=== PATIENT | female | born 2000 | race Caucasian/White ===

== ENCOUNTER → 2020-01-11 13:45 | Outpatient (BNVA) | payer SELFPAY | PROVIDERS: Family Provider Nurse Practitioner; Visit Provider Nurse Practitioner Family | DX: R05 Cough (principal); R09.81 Nasal congestion; R50.9 Fever, unspecified; Z11.59 Encounter for screening for other viral diseases | CPT/HCPCS: 87635 ==

== ENCOUNTER → 2020-02-28 13:55 | Outpatient (BNVA) | payer OTHER, SELFPAY | PROVIDERS: Family Provider Nurse Practitioner; Visit Provider Psychiatry & Neurology Psychiatry | DX: Z03.89 Encounter for observation for other suspected diseases and conditions ruled out (principal); Z79.899 Other long term (current) drug therapy; F32.9 Major depressive disorder, single episode, unspecified; F33.1 Major depressive disorder, recurrent, moderate; F15.20 Other stimulant dependence, uncomplicated | CPT/HCPCS: 80048; 80061; 83036; 84443; 85025 ==

== ENCOUNTER 2020-07-06 22:14 | Inpatient (IN) | payer SELFPAY ==
[2020-07-06 22:16] VITALS: PULSE 120; RESP 18; TEMP 36.7; O2SAT 99; BMI 27.4
[2020-07-06 22:34] LABS: Basophils % 0.5 %; Eosinophils # 0.2 10^3/uL (0.0-0.8); Eosinophils % 2.9 %; Hematocrit 42.9 % (37.0-47.0); Lymphocytes % 35.7 %; Mean Corpuscular HGB Conc 32.6 g/dL (30.0-36.0); Mean Corpuscular Hemoglobin 31.7 pg (28.0-34.0); Mean Corpuscular Volume 97.1 fL (81-99); Mean Platelet Volume 9.9 fL (7.4-10.4); Monocytes # 0.6 10^3/uL (0.2-0.9); Monocytes % 7.4 %; Neutrophils # 4.48 10^3/uL (1.8-8.0); Neutrophils % 53.3 %; Nucleated Red Blood Cells % 0 %; Platelet Count 369 10^3/cmm (130-400); Red Blood Count 4.42 10^6/uL (4.1-5.3); Red Cell Distribution Width 12.5 % (12.1-15.1); White Blood Count 8.4 10^3/uL (4.5-13.0)
[2020-07-06 22:39] LABS: HCG Qualitative Urine. Negative (Negative)
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
[2020-07-06] MEDS: nicotine 21 mg Patch 1 PATCH TRANSDERMA (22:45)
[2020-07-06 22:47] VITALS: BP 119/79
[2020-07-06 22:50] LABS: Alanine Aminotransferase 13 U/L (0-33); Albumin Level 4.4 g/dL (3.5-5.2); Alcohol Level 167 mg/dL (0-10); Alkaline Phosphatase 78 IU/L (35-105); Anion Gap 14.7 (5-19); Aspartate Amino Transferase 12 U/L (0-32); Blood Urea Nitrogen 9 mg/dL (6-20); Calcium 9.3 mg/dL (8.5-10.5); Carbon Dioxide 25 mmol/L (22-29); Chloride 106 mmol/L (98-107); Globulin 3.1 g/dL (1.3-4.6); Glomerular Filtration Rate 203.5 mL/min (90-130); Glucose 96 mg/dL (65-115); Osmolality Calculated 293 mOsm/kg (285-295); Potassium 3.7 mmol/L (3.5-5.1); Salicylate 0.7 mg/dL (3-10); Sodium 142 mmol/L (136-145); Total Bilirubin 0.2 mg/dL (0.15-1.2); Total Protein 7.5 g/dL (6.6-8.7)
[2020-07-06 22:52] LABS: Acetaminophen < 5.0 ug/mL (10-30)
[2020-07-06 23:03] LABS: Amphetamines Screen Urine Positive (Negative); Barbiturates Screen Urine Negative (Negative); Benzodiazepines Screen Urine Negative (Negative); Cocaine Screen Urine Negative (Negative); Opiate Screen Urine Negative (Negative); PCP Screen Urine Negative (Negative); THC Screen Urine Positive (Negative)
[2020-07-06] MEDS: acetaminophen 500 mg Tablet 1000 MG PO (23:30)
[2020-07-06 23:47] VITALS: PULSE 115; RESP 18; O2SAT 94
[2020-07-07 00:45] VITALS: BP 122/63; PULSE 110; RESP 17; TEMP 37.1; O2SAT 98
[2020-07-07] MEDS: nicotine 2 mg Gum BUCCAL ×2 (01:06→19:56)
[2020-07-07] MEDS: hyDROXYzine 25 mg Capsule 50 MG PO (01:06)
[2020-07-07] MEDS: trazodone 50 mg Tablet PO (01:06)
--- NOTE | 2020-07-07 01:08 | PC.NURSE ---
nicotine patch removed
--- NOTE | 2020-07-07 01:08 | PC.NURSE ---
PRN meds Visteril 50mg PO given for increased anxiety Trazodone 50mg PO given for insomnia . Pt is tearful and anxious will continue to monitor
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
[2020-07-07 05:01] VITALS: BP 128/79; PULSE 98; RESP 17; TEMP 37.1; O2SAT 96
[2020-07-07 05:36] VITALS: BMI 27.4
--- NOTE | 2020-07-07 06:08 | PC.NURSE ---
Behavior PT has rested all evening since admission.
--- NOTE | 2020-07-07 10:41 | P.HP_ITS ---
Providers/Chief Complaint Admitting Physician: Sonali Marion DO Primary Care Provider: GARCÍA Walton Chief Complaint: HI AND ETOH HPI NPU History of Present Illness Malcolm Reeves is a 20 year old female with history of alcohol use disorder, methamphetamine abuse, depressive disorder presenting to the emergency department with homicidal ideation and worsening depressive symptoms. Patient reports being an argument with her mother while intoxicated and stated that she wished her mother would . Note from emergency room physician states that she had said that she wanted to kill her mother. Patient's urine drug screen was positive for methamphetamine, cannabis as well as alcohol level of 167. Patient has previously been evaluated for alcohol use disorder and depression in February 2020 but did not follow-up and had not been compliant with medication prescribed at that time which included citalopram 10 mg daily and naltrexone. Patient states that she has had depression since around age 11 or 12 and reports multiple stressors which exacerbate the symptoms. She states that her depressive symptoms are near daily but her clinical picture is also complicated by daily use of alcohol. She denies any history of suicidal ideation or self- harm behavior and denies any history of suicide attempts. She denies any past or recent manic or hypomanic episodes. Previous notes mention PTSD but patient denies any life-threatening trauma and currently denies any trauma related symptoms. Patient reports use of marijuana a couple times per month and use of methamphetamine every couple weeks with daily use of alcohol typically being 2-3 drinks daily. Psychiatric review of systems is otherwise negative. Patient lives with boyfriend. Meds NPU Home Medications Medication Instructions Recorded Confirmed Last Taken Type citalopram 10 mg PO DAILY 07/07/20 07/07/20 Unknown History Allergies Allergy/AdvReac Type Severity Reaction Status Date / Time No Known Allergies Allergy Verified 07/05/20 14:36 PFSH NPU PFSH: Medical History Alcohol use disorder Encounter for observation for other suspected diseases and conditions ruled out MDD (major depressive disorder) Methamphetamine use disorder, moderate Social History Current gender identity: Female Other Psychiatric History: Other Psychiatric History: Previous mental health evaluation February 2020, recommended to start citalopram and naltrexone but patient did not take these medications Denies any history of psychiatric hospitalizations Denies any history of suicide attempts or self-harm behavior Mental Status Exam MSE Comments: Obese, tired appearing, hair pulled back in a ponytail, irritable and uncooperative with interview, poor eye contact Psychomotor activity is neither increased nor decreased, no agitation Speech is intermittent, normal volume, normal rate, not pressured I feel horrible, congruent affect Alert and oriented to person, place, time, situation Memory and concentration are fair per interview Intellectual functioning appears to be average at best based on vocabulary, interview Thought process, linear but brief, no flight of ideas, no looseness of associations Thought content, no delusions, no hallucinations, no suicidal ideation, currently denying homicidal ideation Insight and judgment appear to be fair at best based on patient's lack of appreciation of the serious nature of the events leading to her hospitalization with the potential consequences of her statements and actions as well as ongoing substance use Vitals/I&O/Wt Last Vital Signs Temp 98.8 F 07/07/20 05:01 Pulse 98 07/07/20 05:01 Resp 17 07/07/20 05:01 BP 128/79 07/07/20 05:01 Pulse Ox 96 07/07/20 05:01 Weight last 48 hrs Weight 68.039 kg Weight 68.039 kg Data NPU : 07/06/20 22:27 07/06/20 22:27 A&P Assessment and plan (1) Homicidal ideation: Status: Acute (2) Depressive disorder: Status: Acute (3) Methamphetamine use disorder, moderate: Status: Acute (4) Alcohol use disorder: Status: Acute Additional A&P Information 20-year-old female with history of depressive disorder, noncompliant with follow-up and treatment, alcohol use disorder, methamphetamine abuse presenting with homicidal ideation in the context of persistent pattern of poor coping. Ongoing concerns about irrational, violent behavior in the context of ongoing substance use as well as depressive symptoms. INVOLUNTARY ADMIT to inpatient psychiatry Discussed starting antidepressant targeting depressive symptoms as well as mood and affect lability, patient currently not interested at this time Patient warrants ongoing observation given threats of harm directed specifically at her mother Patient would benefit from post discharge substance counseling/treatment as well as coordinating for post discharge psychiatric follow-up Nursing coordinating with security for duty to warn with regards to her threatening statement made in emergency department of wanting to kill her mother Involuntary Hold Information 96 Hour Hold: 96 Hour Involuntary Admission: Yes 96 Hour Hold Ending Date: 07/11/20 96 Hour Hold Ending Time: 23:14 Attestations NPU Medical Necessity Statement*: Patient requires psychiatric hospitalization for observation given homicidal ideation in the context of untreated depression and substance use as well as coordinating for safe discharge to include post discharge psychiatric and substance treatment Time Spent in Patient Care: Greater than 35 minutes Coding Level of Care Code Acute Tobacco Weigher for [facility] Diagnoses Homicidal ideation R45.850 Depressive disorder F32.9 Methamphetamine use disorder, moderate F15.20 Alcohol use disorder
--- NOTE | 2020-07-07 11:24 | PC.NURSE ---
FLU VACCINE AFTER SEVERAL ATTEMPTS TO GIVE PATIENT THE FLU SHOT, PATIENT REFUSED THE INJECTION.
[2020-07-07 14:00] VITALS: BP 94/58; PULSE 82; RESP 18; TEMP 36.9; O2SAT 98
[2020-07-07] MEDS: acetaminophen 325 mg Tablet 650 MG PO (14:10)
[2020-07-07] MEDS: nicotine 21 mg Patch 1 PATCH TRANSDERMA (14:24)
[2020-07-07 19:23] VITALS: PULSE 96; RESP 15; TEMP 36.8; O2SAT 99
[2020-07-08 06:00] VITALS: BP 101/61; PULSE 79; RESP 16; TEMP 36.6; O2SAT 96
[2020-07-08] MEDS: nicotine 2 mg Gum BUCCAL (10:28)
[2020-07-08] MEDS: blistex lip oint 7 gm Tube 1 APPLIC TOPICAL ×2 (10:29→15:03)
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
[2020-07-08] MEDS: citalopram 20 mg Tablet 10 MG PO (10:57)
[2020-07-08] MEDS: naltrexone hcl 50 mg Tablet PO (10:57)
[2020-07-08 14:00] VITALS: BP 98/60; PULSE 79; RESP 16; TEMP 36.6; O2SAT 96
[2020-07-08 19:55] VITALS: BP 98/55; PULSE 96; RESP 18; TEMP 36.9; O2SAT 99
[2020-07-09 06:00] VITALS: BP 102/62; PULSE 84; RESP 17; TEMP 36.5; O2SAT 96
[2020-07-09] MEDS: citalopram 20 mg Tablet 10 MG PO (07:49)
[2020-07-09] MEDS: naltrexone hcl 50 mg Tablet PO (07:49)
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
[2020-07-09 10:58] VITALS: BP 102/62; PULSE 84; RESP 17; TEMP 36.5; O2SAT 96
== END 2020-07-09 11:40 | disposition home or self-care (01) | DRG 897 ==
LOC: ER 22:49 → NP 23:17
PROVIDERS: Admitting Provider Psychiatry & Neurology Psychiatry; Emergency Provider Emergency Medicine; PCP Nurse Practitioner; Visit Provider Psychiatry & Neurology Psychiatry
DX: F10.229 Alcohol dependence with intoxication, unspecified (principal); F32.9 Major depressive disorder, single episode, unspecified; R45.850 Homicidal ideations; F15.229 Other stimulant dependence with intoxication, unspecified; Y90.6 Blood alcohol level of 120-199 mg/100 ml; F12.10 Cannabis abuse, uncomplicated
CPT/HCPCS: 12345; 80053; 80306; 80307; 81025; 85025; 99284

== ENCOUNTER 2021-10-02 00:03 | Inpatient (IN) | payer MEDICAID, SELFPAY ==
[2021-10-02] VITALS (8 sets, daily range): BP systolic 92–128; BP diastolic 49–74; PULSE 94–125; RESP 16–20; TEMP 36.6–37.2; O2SAT 91–100; BMI 23.8
--- NOTE | 2021-10-02 00:10 | W.ED.PSYCHS ---
HPI - Psych General: Chief Complaint: Psychiatric Symptoms Stated Complaint: MHE/ETOH Time Seen by Provider: 10/02/21 00:04 Source: patient and EMS Mode of arrival: EMS Limitations: no limitations History of Present Illness: 21-year-old female who is here with EMS patient is extremely intoxicated was outside her home screaming and yelling stating she wants to kill her self. Here she is quite intoxicated she told me that she just wants to has nothing to live for she has no specific plan history is difficult due to her level intoxication Associated symptoms: Reports depression and suicidal ideation Review of Systems Const: Denies: fever(s), chills, body aches or change in appetite Eyes: Denies: blurry vision or eye discomfort ENMT: Denies: throat pain or dental pain Card: Denies: chest pain Resp: Denies: dyspnea GI: Denies: abdominal pain, nausea, vomiting or diarrhea : Denies: dysuria Musc: Denies: neck pain or back pain Skin/Breast: Denies: rash Neuro: Denies: headache(s) Psych: Reports: depression and suicidal ideation Alphonse/Lymph: Denies: easy bruising All/Imm: Denies: urticaria PFSH ED PFSH: Medical History Alcohol use disorder Encounter for observation for other suspected diseases and conditions ruled out MDD (major depressive disorder) Methamphetamine use disorder, moderate Social History Current gender identity: Female Female Reproductive History: Date of last menstrual period: 06/30/20 Physical Exam Const: COMMON NORMALS: patient oriented x3 GENERAL APPEARANCE: odor of alcohol detected HENMT: COMMON NORMALS: normocephalic and atraumatic HEAD & SCALP: normocephalic and atraumatic Eye: COMMON NORMALS: Equal, round and reactive pupils present and EOMs intact bilaterally PUPIL: Yes Equal, round and reactive pupils present Neck/C-Spine: COMMON NORMALS: full ROM and supple Chest: COMMONS NORMALS: normal inspection of the chest and normal palpation of entire chest wall Resp: COMMON NORMALS: normal respiratory effort, No retractions, No use of accessory muscles and clear to auscultation bilaterally AUSCULTATION: clear to auscultation bilaterally Cardio: COMMON NORMALS: regular rate, regular rhythm and No murmurs present (Cardio) RATE: regular rate RHYTHM: regular rhythm GI: COMMON NORMALS: Normal to inspection, nondistended, normoactive bowel sounds present, Soft to palpation, non-tender and no masses PALPATION: Yes Soft to palpation Extremity: COMMON NORMALS: normal to inspection and full ROM Neuro: COMMON NORMALS: patient oriented x3, moves all extremities and no focal motor deficits Psych: APPEARANCE: Yes unkempt and Yes disheveled ATTITUDE: Yes Belligerent attititude/behavior present THOUGHT CONTENT: Yes Suicidality present Skin: COMMON NORMALS: no rashes or lesions noted and no wounds GENERAL SKIN EXAM: no rashes or lesions noted Course Vital Signs: Vital signs: Vital Signs Temperature 98.5 F 10/02/21 00:04 Pulse Rate 103 H 10/02/21 00:51 Respiratory Rate 16 10/02/21 00:51 Blood Pressure 128/69 10/02/21 00:04 Pulse Oximetry 91 10/02/21 00:51 MDM - Psych Medical Decision Making Patient presents here with suicidal ideation along with alcohol intoxication patient placed on a 96-hour hold I spoke to psychiatrist and will admit Lab Data : 10/02/21 00:30 10/02/21 00:30 Laboratory Results WBC 10.3 10^3/uL (4.0-10.0) H 10/02/21 00:30 RBC 4.71 10^6/uL (4.1-5.3) 10/02/21 00:30 Hgb 15.0 g/dL (11.5-15.3) 10/02/21 00:30 Hct 43.9 % (37.0-47.0) 10/02/21 00:30 MCV 93.2 fl (81-99) 10/02/21 00:30 MCH 31.8 pg (28.0-34.0) 10/02/21 00:30 MCHC 34.2 g/dL (30.0-36.0) 10/02/21 00:30 RDW 13.0 % (12.1-15.1) 10/02/21 00:30 Plt Count 380 10^3/cmm (130-400) 10/02/21 00:30 MPV 10.1 fL (7.4-10.4) 10/02/21 00:30 Neut % (Auto) 69.4 % 10/02/21 00:30 Lymph % (Auto) 24.5 % 10/02/21 00:30 [place] % (Auto) 3.9 % 10/02/21 00:30 Eos % (Auto) 1.3 % 10/02/21 00:30 Baso % (Auto) 0.7 % 10/02/21 00:30 Neut # (Auto) 7.17 10^3/uL (1.8-7.7) 10/02/21 00:30 Lymph # (Auto) 2.5 10^3/uL (0.8-4.8) 10/02/21 00:30 [place] # (Auto) 0.4 10^3/uL (0.2-0.9) 10/02/21 00:30 Eos # (Auto) 0.1 10^3/uL (0.0-0.8) 10/02/21 00:30 Baso # (Auto) 0.1 10^3/uL (0.0-0.1) 10/02/21 00:30 Nucleated RBC % (auto) 0 % 10/02/21 00:30 Nucleated RBCs # 0.0 /100WBC 10/02/21 00:30 Sodium 142 mmol/L (136-145) 10/02/21 00:30 Potassium 3.5 mmol/L (3.5-5.1) 10/02/21 00:30 Chloride 107 mmol/L (98-107) 10/02/21 00:30 Carbon Dioxide 20 mmol/L (22-29) L 10/02/21 00:30 Anion Gap 18.5 (5-19) 10/02/21 00:30 BUN 7 mg/dL (6-20) 10/02/21 00:30 Creatinine 0.4 mg/dL (0.5-0.9) L 10/02/21 00:30 GFR Calculation 201.5 mL/min (90-130) H 10/02/21 00:30 Glucose 97 mg/dL (65-115) 10/02/21 00:30 Calculated Osmolality 292 mOsm/kg (285-295) 10/02/21 00:30 Calcium 9.6 mg/dL (8.5-10.5) 10/02/21 00:30 Total Bilirubin 0.2 mg/dL (0.15-1.2) 10/02/21 00:30 AST 14 U/L (0-32) 10/02/21 00:30 ALT 14 U/L (0-33) 10/02/21 00:30 Alkaline Phosphatase 76 IU/L (35-105) 10/02/21 00:30 Total Protein 7.5 g/dL (6.6-8.7) 10/02/21 00:30 Albumin 4.7 g/dL (3.5-5.2) 10/02/21 00:30 Globulin 2.8 g/dL (1.3-4.6) 10/02/21 00:30 HCG, Qual Negative (Negative) 10/02/21 00:32 Salicylates 1.4 mg/dL (3-10) L 10/02/21 00:30 Urine Opiates Screen Negative ng/mL (Negative) 10/02/21 00:32 Acetaminophen < 5.0 ug/mL (10-30) L 10/02/21 00:30 Ur Barbiturates Screen Negative ng/mL (Negative) 10/02/21 00:32 Ur Phencyclidine Scrn Negative ng/mL (Negative) 10/02/21 00:32 Ur Amphetamines Screen Positive ng/mL (Negative) H 10/02/21 00:32 U Benzodiazepines Scrn Negative ng/mL (Negative) 10/02/21 00:32 Urine Cocaine Screen Negative ng/mL (Negative) 10/02/21 00:32 U Marijuana (THC) Screen Negative ng/mL (Negative) 10/02/21 00:32 Ethyl Alcohol 282 mg/dL (0-10) H 10/02/21 00:30 Discharge Plan Discharge Patient Disposition: Admitted As Inpatient Clinical Impression: Suicidal ideation, Alcohol use disorder Condition: Stable Coding Level of Care Code ED Extraction Supervisor for Brady Fwd Exam Comprehensive
[2021-10-02] MEDS: haloperidol inj 5 mg/mL INJ 1 mL IM (00:21)
[2021-10-02 00:37] LABS: Basophils # 0.1 10^3/uL (0.0-0.1); Basophils % 0.7 %; Eosinophils # 0.1 10^3/uL (0.0-0.8); Eosinophils % 1.3 %; Hematocrit 43.9 % (37.0-47.0); Lymphocytes # 2.5 10^3/uL (0.8-4.8); Lymphocytes % 24.5 %; Mean Corpuscular HGB Conc 34.2 g/dL (30.0-36.0); Mean Corpuscular Hemoglobin 31.8 pg (28.0-34.0); Mean Corpuscular Volume 93.2 fl (81-99); Mean Platelet Volume 10.1 fL (7.4-10.4); Monocytes # 0.4 10^3/uL (0.2-0.9); Monocytes % 3.9 %; Neutrophils # 7.17 10^3/uL (1.8-7.7); Neutrophils % 69.4 %; Nucleated Red Blood Cells % 0 %; Platelet Count 380 10^3/cmm (130-400); Red Blood Count 4.71 10^6/uL (4.1-5.3); White Blood Count 10.3 10^3/uL (4.0-10.0)
[2021-10-02] MEDS: LORazepam 2 mg/mL INJ 1 mL IM (00:45)
[2021-10-02 00:54] LABS: Alanine Aminotransferase 14 U/L (0-33); Albumin Level 4.7 g/dL (3.5-5.2); Alcohol Level 282 mg/dL (0-10); Alkaline Phosphatase 76 IU/L (35-105); Anion Gap 18.5 (5-19); Aspartate Amino Transferase 14 U/L (0-32); Blood Urea Nitrogen 7 mg/dL (6-20); Calcium 9.6 mg/dL (8.5-10.5); Carbon Dioxide 20 mmol/L (22-29); Chloride 107 mmol/L (98-107); Globulin 2.8 g/dL (1.3-4.6); Glomerular Filtration Rate 201.5 mL/min (90-130); Glucose 97 mg/dL (65-115); Osmolality Calculated 292 mOsm/kg (285-295); Potassium 3.5 mmol/L (3.5-5.1); Salicylate 1.4 mg/dL (3-10); Sodium 142 mmol/L (136-145); Total Bilirubin 0.2 mg/dL (0.15-1.2); Total Protein 7.5 g/dL (6.6-8.7)
[2021-10-02 00:56] LABS: Acetaminophen < 5.0 ug/mL (10-30)
[2021-10-02 01:01] LABS: HCG Qualitative Urine. Negative (Negative)
[2021-10-02 01:13] LABS: Amphetamines Screen Urine Positive (Negative); Barbiturates Screen Urine Negative (Negative); Benzodiazepines Screen Urine Negative (Negative); Cocaine Screen Urine Negative (Negative); Opiate Screen Urine Negative (Negative); PCP Screen Urine Negative (Negative); THC Screen Urine Negative (Negative)
--- NOTE | 2021-10-02 08:13 | PC.NURSE ---
scheduled 0900 meds held (thiamine, folic acid, multivitamin) d/t level of sedation & patient unable to safely swallow medications
--- NOTE | 2021-10-02 12:57 | P.NPUHP_ITS ---
Providers/Chief Complaint Admitting Physician: Mikey Green MD Primary Care Provider: GARCÍA Walton Chief Complaint: MHE/ETOH HPI NPU History of Present Illness Malcolm Reeves is a 21 year old female emergency department with the following report: Chief Complaint: Psychiatric Symptoms Stated Complaint: MHE/ETOH Time Seen by Provider: 10/02/21 00:04 Source: patient and EMS Mode of arrival: EMS Limitations: no limitations History of Present Illness: 21-year-old female who is here with EMS patient is extremely intoxicated was outside her home screaming and yelling stating she wants to kill her self. Here she is quite intoxicated she told me that she just wants to has nothing to live for she has no specific plan history is difficu lt due to her level intoxication Associated symptoms: Reports depression and suicidal ideation. Admitted to the neuropsychiatric unit for definitive treatment of those issues. She is known to the unit from an inpatient hospitalization July 06, 2020. Presents today reporting that she does not know what happened. After it was brought to her attention that there were reports that she was yelling saying she wanted to kill her self she reports I was drunk. She reports that has been a long time since she has been in treatment for her issues. She reports that she smokes cigarettes about 2 packs a day, drinks alcohol every once in a while, marijuana every once a while and other illicit drugs every once in a while but denies treatment, DUIs or any possession charges. She reports that she is not having any significant withdrawal today but her anxiety is out of control. She reports that her drinking is often a response to her anxiety being out of control. She reports that she has never been on medication for her anxiety and we discussed the risk benefits and alternatives of starting Prozac 20 mg p.o. daily and she understood and agrees to proceed as is documented in this note. She reports that the only changes from her evaluation that is shown below is that she currently lives with her father and that she does have a job at [employer]. We did discuss the fact that she is on a 96-hour hold and that she wants to be discharged as soon as it seen as reasonable. She does have concerns about her employment but also does want to get help with her anxiety. Per her 02/28/2020 [facility] outpatient psychiatric evaluation: [facility] History and Physical Time In: 13:20 Time Out: 14:00 Chief Complaint: Anxiety and depression, addiction History of Present Illness: Patient is a 20-year-old female with 4 to 5-year struggle with addiction?patient started using alcohol early, methamphetamine at 15 or 16 along with other illicit substances.? She deals with mood swings, depression and anxiety, she has fears of losing her child, her boyfriend of 8 months is also wanting to get clean and sober as his brother just completed suicide related to drug addiction.? Patient also states that her father who was in his early 50s is very ill with alcoholism and heart related issues and she would like to change her life, she does not want to do drugs anymore. She is always drink regularly but he got very heavy 8 to 10 months ago when she met her current boyfriend and they are drinking escalated quickly.? Her last drink was a couple of days ago, she denies any withdrawal seizures or complications in her history.? She used methamphetamine 5 months ago, is having a very difficult time as she started using methamphetamine when she was 15 or 16 years old, she is always smoked meth she is never used IV drugs.? She is recently used opiates and has done this sporadically over her lifetime, she also buys benzodiazepines illicitly.? She currently has some cravings for alcohol and benzodiazepines.? She does smoke cigarettes. Patient lives with her boyfriend and her 2-year-old daughter who does not stay with her full-time.? 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 She is having dysphoric mood, feels depressed and has crying episodes, poor energy motivation, decreased interest, irritability mood swings, she has a good appetite?she is overweight and has good dentition.? She is anxious and tense, she worries about something bad happening.? She is very defensive but is also very cooperative, she does not like to talk about her 2-year-old daughter's biological father and their custody arrangements, she seems very afraid of saying something wrong and getting in trouble.? Of note she left school when she was about 15 years old, she moved out of her dysfunctional home when she was about 12 and moved in with a boyfriend.? She has not had a lot of work experience or education. Her boyfriend is enrolled in a behavioral health clinic, and together they have been seeing a private community therapist that they have been paying for, they are no longer able to financially afford this at this time so they have come to the clinic. History Past Psychiatric History: Medications?she is never been on any prescribed psychotropics. No hospital admissions, denies any history of suicidal behavior ? Family History: Biological father?alcoholism Some family members with bipolar disorder Past Medical History: Patient denies any head injuries or seizures, no cardiac problems, denies dizziness or syncope, denies any digestive issues. Substance Use History: Drug and alcohol use began when she was around 12 or 13 years old, has always drank alcohol, was drinking heavily and daily from was the last year of her life.? Started using methamphetamine around 14 or 15 and has had almost daily use until 5 months ago.? She is also used different opiates including fentanyl regularly as well as benzodiazepines, patient sporadically uses marijuana. 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 She has no current legal issues, she has been on probation in the past however.? She did not finish high school and does not have a GED. She describes very detached and permissive parents, she was basically on her own at 11 years old and left home shortly after that to live with boyfriend, also her parents home was unsanitary. Prior to the age of 11, patient was living in [place] with her family describes it is very positive, then the family moved to [place] and things changed drastically?patient feels this was because there were some deaths in the family and everybody became depressed . Meds NPU Home Medications Medication Instructions Recorded Confirmed Last Taken Type citalopram 10 mg tablet 10 mg PO DAILY 07/07/20 07/07/20 Unknown History citalopram 20 mg tablet 10 mg PO DAILY #30 tab 07/09/20 Unknown Rx naltrexone 50 mg tablet 50 mg PO DAILY #30 tab 07/09/20 Unknown Rx Allergies Allergy/AdvReac Type Severity Reaction Status Date / Time No Known Allergies Allergy Verified 07/05/20 14:36 PFS NPU PFS: Medical History Alcohol use disorder Encounter for observation for other suspected diseases and conditions ruled out MDD (major depressive disorder) Methamphetamine use disorder, moderate Social History Current gender identity: Female Mental Status Exam MSE Comments: This is a overweight white female in Cubs with limited grooming and eye contact. No abnormal movements except for psychomotor retardation. She was mostly cooperative with the exam in mild distress. Speech was slightly decreased rate and volume. Patient mood described as anxious, affect congruent. Thought process, mostly organized. Thought content. There is no suicidal or homicidal ideation, no delusions reported or noted, and she denied any auditory or visual hallucinations. Attention and concentration are intact and memory is reliable but none were formally tested. Insight and judgment are limited. Impulse control is limited. Vitals/I&O/Wt Last Vital Signs Temp 98.9 F 10/02/21 06:00 Pulse 115 H 10/02/21 06:00 Resp 18 10/02/21 06:00 BP 92/49 10/02/21 06:00 Pulse Ox 100 10/02/21 06:00 Weight last 48 hrs Weight 58.967 kg Data NPU : 10/02/21 00:30 10/02/21 00:30 A&P Assessment and plan (1) Suicidal ideation: Status: Acute (2) Depressive disorder: Status: Acute (3) Methamphetamine use disorder, moderate: Status: Acute (4) Alcohol use disorder: Status: Acute (5) MDD (major depressive disorder): Status: Acute Qualifiers: Active/Remission status: currently active Major depression episode severity: moderate Major depression recurrence: recurrent Qualified Code(s): F33.1 - Major depressive disorder, recurrent, moderate (6) Anxiety disorder: Status: Acute Plan This is a 21-year-old white female with alcohol abuse, cannabis and methamphetamine use disorders, anxiety and depression who presents on a 96-hour hold open to treatment. 1.? Continue current medication. Start Prozac 20 mg p.o. daily 2.? Continue every 15 minute checks for safety. 3.? Encourage individual, group and milieu therapies. 4.? Encourage sober living treatment after discharge at the highest level of care to which he is willing to commit. Involuntary Hold Information 96 Hour Hold: 96 Hour Involuntary Admission: Yes 96 Hour Hold Ending Date: 07/11/20 96 Hour Hold Ending Time: 23:14 Attestations NPU Medical Necessity Statement*: Inpatient hospitalization is medically necessary and the clinically appropriate intervention at this time.? We will monitor medications and make changes as indicated.? Patient will be in the hospital for over two midnights.? Likely length of stay 3 to 5 days. Coding Level of Care Code Acute Turbogenerator Operator for g Fwd Diagnoses Suicidal ideation R45.851 Depressive disorder F32.9 Methamphetamine use disorder, moderate F15.20 Alcohol use disorder MDD (major depressive disorder) F33.1 Active/Remission status: currently active Major depression episode severity: moderate Major depression recurrence: recurrent Anxiety disorder F41.9
[2021-10-03 06:00] VITALS: BP 114/72; PULSE 81; RESP 17; TEMP 37; O2SAT 97
--- NOTE | 2021-10-03 12:41 | W.PM.NPUPNS ---
Subjective NPU Subjective: Patient presents today reporting that she had not received the Prozac that she agreed to take and we agreed that this insurance underwriter sales would explore and identify what had occurred if she had in fact not taken it. She reports feeling better from a intoxication withdrawal standpoint. She reports that she has been in communication with her father and appears to have a possible safe discharge option. We agreed we would continue to monitor her daily improvement and explore her safety for discharge given the 96-hour hold. Mental Status Exam MSE Comments: This is a overweight white female in hospital scrubs with improving grooming and eye contact.? No abnormal movements except for mild resolving psychomotor retardation.? She was mostly cooperative with the exam in no acute distress. Speech was slightly decreased rate and volume. Patient mood described as a little better, affect congruent. Thought process, mostly organized. Thought content. There is no suicidal or homicidal ideation, no delusions reported or noted, and she denied any auditory or visual hallucinations. Attention and concentration are intact and memory is more reliable but none were formally tested. Insight and judgment are limited. Impulse control is limited. Vitals/I&O/Wt Last Vital Signs Temp 98.6 F 10/03/21 06:00 Pulse 81 10/03/21 06:00 Resp 17 10/03/21 06:00 BP 114/72 10/03/21 06:00 Pulse Ox 97 10/03/21 06:00 Weight last 48 hrs Weight 58.967 kg Data NPU : 10/02/21 00:30 10/02/21 00:30 A&P Assessment and plan (1) Anxiety disorder: Status: Acute (2) Suicidal ideation: Status: Acute (3) Methamphetamine use disorder, moderate: Status: Acute (4) Alcohol use disorder: Status: Acute (5) MDD (major depressive disorder): Status: Acute Qualifiers: Major depression recurrence: recurrent Active/Remission status: currently active Major depression episode severity: moderate Qualified Code(s): F33.1 - Major depressive disorder, recurrent, moderate Plan This is a 21-year-old white female with alcohol abuse, cannabis and methamphetamine use disorders, anxiety and depression who presents on a 96-hour hold open to treatment. 1.? Continue current medication.? Started Prozac 20 mg p.o. daily 2.? Continue every 15 minute checks for safety. 3.? Encourage individual, group and milieu therapies. 4.? Encourage sober living treatment after discharge at the highest level of care to which he is willing to commit. Involuntary Hold Information 96 Hour Hold: 96 Hour Involuntary Admission: Yes 96 Hour Hold Ending Date: 07/11/20 96 Hour Hold Ending Time: 23:14 Attestations NPU Medical Necessity Statement*: Inpatient hospitalization is medically necessary and the clinically appropriate intervention at this time.? We will monitor medications and make changes as indicated.? Likely length of stay 2-4 days. Coding Level of Care Code Acute Identification Technician for g Fwd Diagnoses Anxiety disorder F41.9 Suicidal ideation R45.851 Methamphetamine use disorder, moderate F15.20 Alcohol use disorder MDD (major depressive disorder) F33.1 Major depression recurrence: recurrent Active/Remission status: currently active Major depression episode severity: moderate
[2021-10-03 14:00] VITALS: BP 95/63; PULSE 106; RESP 18; O2SAT 96
[2021-10-03] MEDS: fluoxetine 20 mg Capsule PO (20:44)
[2021-10-03 20:50] VITALS: PULSE 103; RESP 18; O2SAT 93
[2021-10-04 05:44] VITALS: BP 97/63; PULSE 97; RESP 16; O2SAT 96
[2021-10-04] MEDS: fluoxetine 20 mg Capsule PO (09:36)
[2021-10-04] MEDS: multivitamin therapeutic Tablet 1 TAB PO (09:36)
[2021-10-04] MEDS: thiamine 100 mg Tablet PO (09:36)
[2021-10-04] MEDS: folic acid 1 mg Tablet PO (09:36)
[2021-10-04 14:00] VITALS: BP 106/74; PULSE 94; RESP 16; O2SAT 96
--- NOTE | 2021-10-04 15:06 | P.NPUPN_ITS ---
Subjective NPU Subjective: Patient presents today seeming to be an better spirits and being less isolative on the unit. She reports is tolerating the Prozac and endorsed feeling less anxious and in a better mood. She holds her father's open to be supportive and going to allow her to stay with him as she gets her situation under better control. We discussed reaching out to him tomorrow and discussing his comfort level with a discharge in the next 48 hours. Medications: Medication Review Details: This is a overweight white female in hospital scrubs with improving grooming and eye contact.? No abnormal movements except for mild resolving psychomotor retardation.? She was cooperative with the exam in no acute distress. Speech was slightly decreased rate and volume. Patient mood described as better, affect congruent. Thought process, mostly organized. Thought content. She reports no suicidal or homicidal ideation, no delusions reported or noted, and she denied any auditory or visual hallucinations. Attention and concentration are intact and memory is more reliable but none were formally tested. Insight and judgment are limited. Impulse control is limited. Vitals/I&O/Wt Last Vital Signs Temp 98.6 F 10/03/21 06:00 Pulse 97 10/04/21 05:44 Resp 16 10/04/21 05:44 BP 97/63 10/04/21 05:44 Pulse Ox 96 10/04/21 05:44 Data NPU : 10/02/21 00:30 10/02/21 00:30 A&P Assessment and plan (1) Anxiety disorder: Status: Acute (2) Suicidal ideation: Status: Acute (3) Methamphetamine use disorder, moderate: Status: Acute (4) Alcohol use disorder: Status: Acute (5) MDD (major depressive disorder): Status: Acute Qualifiers: Major depression recurrence: recurrent Active/Remission status: currently active Major depression episode severity: moderate Qualified Code(s): F33.1 - Major depressive disorder, recurrent, moderate Plan This is a 21-year-old white female with alcohol abuse, cannabis and methamphetamine use disorders, anxiety and depression who presents on a 96-hour hold open to treatment. 1.? Continue current medication.? Started Prozac 20 mg p.o. daily 2.? Continue every 15 minute checks for safety. 3.? Encourage individual, group and milieu therapies. 4.? Encourage sober living treatment after discharge at the highest level of care to which he is willing to commit. Involuntary Hold Information 96 Hour Hold: 96 Hour Involuntary Admission: Yes 96 Hour Hold Ending Date: 07/11/20 96 Hour Hold Ending Time: 23:14 Attestations NPU Medical Necessity Statement*: Inpatient hospitalization is medically necessary and the clinically appropriate intervention at this time.? We will monitor medications and make changes as indicated.? Likely length of stay 1-3 days. Coding Level of Care Code Acute Vice President Of Talent Management for [facility] Fwd Diagnoses Anxiety disorder F41.9 Suicidal ideation R45.851 Methamphetamine use disorder, moderate F15.20 Alcohol use disorder MDD (major depressive disorder) F33.1 Major depression recurrence: recurrent Active/Remission status: currently active Major depression episode severity: moderate
[2021-10-04] MEDS: nicotine 2 mg Gum BUCCAL (15:28)
[2021-10-04 20:46] VITALS: BP 110/77; PULSE 95; RESP 17; TEMP 37.1; O2SAT 97
[2021-10-05 05:34] VITALS: BMI 23.8
[2021-10-05 05:57] VITALS: BP 95/58; PULSE 77; RESP 15; TEMP 36.8; O2SAT 95
[2021-10-05] MEDS: fluoxetine 20 mg Capsule PO (08:53)
[2021-10-05] MEDS: folic acid 1 mg Tablet PO (08:53)
[2021-10-05] MEDS: multivitamin therapeutic Tablet 1 TAB PO (08:53)
[2021-10-05] MEDS: thiamine 100 mg Tablet PO (08:53)
[2021-10-05] MEDS: nicotine 2 mg Gum BUCCAL (09:08)
[2021-10-05 14:00] VITALS: PULSE 102; RESP 18; TEMP 36.6; O2SAT 98
[2021-10-05] MEDS: nicotine 21 mg Patch 1 PATCH TRANSDERMA (14:59)
--- NOTE | 2021-10-05 15:42 | P.NPUDS_ITS ---
Diagnoses at Discharge Discharge Diagnosis (1) Anxiety disorder: Status: Acute (2) Suicidal ideation: Status: Resolved (3) Methamphetamine use disorder, moderate: Status: Acute (4) Alcohol use disorder: Status: Acute (5) MDD (major depressive disorder): Status: Acute Qualifiers: Active/Remission status: currently active Major depression episode severity: moderate Major depression recurrence: recurrent Qualified Code(s): F33.1 - Major depressive disorder, recurrent, moderate Reason for Visit Reason for Visit: MHE/ETOH Brief History: Malcolm Reeves is a 21 year old female emergency department with the following report: Chief Complaint: Psychiatric Symptoms Stated Complaint: MHE/ETOH Time Seen by Provider: 10/02/21 00:04 Source: patient and EMS Mode of arrival: EMS Limitations: no limitations History of Present Illness:?? 21-year-old female who is here with EMS patient is extremely intoxicated was outside her home screaming and yelling stating she wants to kill her self.? Here she is quite intoxicated she told me that she just wants to has nothing to live for she has no specific plan history is difficult due to her level intoxication Associated symptoms: Reports depression and suicidal ideation. Admitted to the neuropsychiatric unit for definitive treatment of those issues.? She is known to the unit from an inpatient hospitalization July 06, 2020.? Presents today reporting that she does not know what happened.? After it was brought to her attention that there were reports that she was yelling saying she wanted to kill her self she reports I was drunk. ? She reports that has been a long time since she has been in treatment for her issues.? She reports that she smokes cigarettes about 2 packs a day, drinks alcohol every once in a while, marijuana every once a while and other illicit drugs every once in a while but denies treatment, DUIs or any possession charges.? She reports that she is not having any significant withdrawal today but her anxiety is out of control.? She reports that her drinking is often a response to her anxiety being out of control.? She reports that she has never been on medication for her anxiety and we discussed the risk benefits and alternatives of starting Prozac 20 mg p.o. daily and she understood and agrees to proceed as is documented in this note.? She reports that the only changes from her evaluation that is shown below is that she currently lives with her father and that she does have a job at [employer].? We did discuss the fact that she is on a 96-hour hold and that she wants to be discharged as soon as it seen as reasonable.? She does have concerns about her employment but also does want to get help with her anxiety. Per her 02/28/2020 [facility] outpatient psychiatric evaluation: [facility] History and Physical Time In: 13:20 Time Out: 14:00 Chief Complaint: Anxiety and depression, addiction History of Present Illness: Patient is a 20-year-old female with 4 to 5-year struggle with addiction?patient started using alcohol early, methamphetamine at 15 or 16 along with other illicit substances.? She deals with mood swings, depression and anxiety, she has fears of losing her child, her boyfriend of 8 months is also wanting to get clean and sober as his brother just completed suicide related to drug addiction.? Patient also states that her father who was in his early 50s is very ill with alcoholism and heart related issues and she would like to change her life, she does not want to do drugs anymore. She is always drink regularly but he got very heavy 8 to 10 months ago when she met her current boyfriend and they are drinking escalated quickly.? Her last drink was a couple of days ago, she denies any withdrawal seizures or complications in her history.? She used methamphetamine 5 months ago, is having a very difficult time as she started using methamphetamine when she was 15 or 16 years old, she is always smoked meth she is never used IV drugs.? She is recently used opiates and has done this sporadically over her lifetime, she also buys benzodiazepines illicitly.? She currently has some cravings for alcohol and benzodiazepines.? She does smoke cigarettes. Patient lives with her boyfriend and her 2-year-old daughter who does not stay with her full-time.? 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 She is having dysphoric mood, feels depressed and has crying episodes, poor energy motivation, decreased interest, irritability mood swings, she has a good appetite?she is overweight and has good dentition.? She is anxious and tense, she worries about something bad happening.? She is very defensive but is also very cooperative, she does not like to talk about her 2-year-old daughter's biological father and their custody arrangements, she seems very afraid of saying something wrong and getting in trouble.? Of note she left school when she was about 15 years old, she moved out of her dysfunctional home when she was about 12 and moved in with a boyfriend.? She has not had a lot of work experience or education. Her boyfriend is enrolled in a behavioral health clinic, and together they have been seeing a private community therapist that they have been paying for, they are no longer able to financially afford this at this time so they have come to the clinic. History Past Psychiatric History: Medications?she is never been on any prescribed psychotropics. No hospital admissions, denies any history of suicidal behavior ? Family History: Biological father?alcoholism Some family members with bipolar disorder Past Medical History: Patient denies any head injuries or seizures, no cardiac problems, denies dizziness or syncope, denies any digestive issues. Substance Use History: Drug and alcohol use began when she was around 12 or 13 years old, has always drank alcohol, was drinking heavily and daily from was the last year of her life.? Started using methamphetamine around 14 or 15 and has had almost daily use until 5 months ago.? She is also used different opiates including fentanyl regularly as well as benzodiazepines, patient sporadically uses marijuana. 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 She has no current legal issues, she has been on probation in the past however.? She did not finish high school and does not have a GED. She describes very detached and permissive parents, she was basically on her own at 11 years old and left home shortly after that to live with boyfriend, also her parents home was unsanitary. Prior to the age of 11, patient was living in [place] with her family describes it is very positive, then the family moved to [place] and things changed drastically?patient feels this was because there were some deaths in the family and everybody became depressed . Hospital Course Hospital Course She quickly acclimated to the individual, group and milieu therapies provided. She was started on Prozac as well as rosita for her alcohol withdrawal and use. She had significant improvement and reported feeling much better. She was able to contract for safety outside of the hospital prior to discharge. During the hospitalization, patient had routine laboratory studies which were within normal limits except for few outliers. Additionally there was a general medical evaluation which was also within normal limits and revealed no new acute processes. Discharge Summary: At the time of discharge, she denied psychosis or lethality. Mood and anxiety were well managed. Patient endorsed a plan to avoid all drugs of abuse and follow-up with the aftercare recommendations of the treatment team. Patient was evaluated and deemed to be absent credible lethality, and had achieved the maximum benefit from an inpatient hospitalization, so was discharged. Involuntary Hold Information 96 Hour Hold: 96 Hour Involuntary Admission: Yes 96 Hour Hold Ending Date: 07/11/20 96 Hour Hold Ending Time: 23:14 Mental Status Exam MSE Comments: This is a overweight white female in hospital scrubs with improving grooming and eye contact.? No abnormal movements except for mild resolving psychomotor retardation.? She was mostly cooperative with the exam in no acute distress. Speech was more normal rate and volume. Patient mood described as better, affect congruent. Thought process, mostly organized. Thought content. There is no suicidal or homicidal ideation, no delusions reported or noted, and she denied any auditory or visual hallucinations. Attention and concentration are intact and memory is more reliable but none were formally tested. Insight and judgment are limited, but improving. Impulse control is limited. Discharge Data Studies Completed and Pending: Laboratory Results WBC 10.3 10^3/uL (4.0 -10.0) H 10/02/21 00:30 RBC 4.71 10^6/uL (4.1 -5.3) 10/02/21 00:30 Hgb 15.0 g/dL (11.5-1 5.3) 10/02/21 00:30 Hct 43.9 % (37.0-47.0 ) 10/02/21 00:30 MCV 93.2 fl (81-99) 10/02/21 00:30 MCH 31.8 pg (28.0-34. 0) 10/02/21 00:30 MCHC 34.2 g/dL (30.0-3 6.0) 10/02/21 00:30 RDW 13.0 % (12.1-15.1 ) 10/02/21 00:30 Plt Count 380 10^3/cmm (130 -400) 10/02/21 00:30 MPV 10.1 fL (7.4-10.4 ) 10/02/21 00:30 Neut % (Auto) 69.4 % 10/02/21 00:30 Lymph % (Auto) 24.5 % 10/02/21 00:30 Webster % (Auto) 3.9 % 10/02/21 00:30 Eos % (Auto) 1.3 % 10/02/21 00:30 Baso % (Auto) 0.7 % 10/02/21 00:30 Neut # (Auto) 7.17 10^3/uL (1.8 -7.7) 10/02/21 00:30 Lymph # (Auto) 2.5 10^3/uL (0.8- 4.8) 10/02/21 00:30 Webster # (Auto) 0.4 10^3/uL (0.2- 0.9) 10/02/21 00:30 Eos # (Auto) 0.1 10^3/uL (0.0- 0.8) 10/02/21 00:30 Baso # (Auto) 0.1 10^3/uL (0.0- 0.1) 10/02/21 00:30 Nucleated RBC % (a uto) 0 % 10/02/21 00:30 Nucleated RBCs # 0.0 /100WBC 10/02/21 00:30 Sodium 142 mmol/L (136-1 45) 10/02/21 00:30 Potassium 3.5 mmol/L (3.5-5 .1) 10/02/21 00:30 Chloride 107 mmol/L (98-10 7) 10/02/21 00:30 Carbon Dioxide 20 mmol/L (22-29) L 10/02/21 00:30 Anion Gap 18.5 (5-19) 10/02/21 00:30 BUN 7 mg/dL (6-20) 10/02/21 00:30 Creatinine 0.4 mg/dL (0.5-0. 9) L 10/02/21 00:30 GFR Calculation 201.5 mL/min (90- 130) H 10/02/21 00:30 Glucose 97 mg/dL (65-115) 10/02/21 00:30 Calculated Osmolal ity 292 mOsm/kg (285- 295) 10/02/21 00:30 Calcium 9.6 mg/dL (8.5-10 .5) 10/02/21 00:30 Total Bilirubin 0.2 mg/dL (0.15-1 .2) 10/02/21 00:30 AST 14 U/L (0-32) 10/02/21 00:30 ALT 14 U/L (0-33) 10/02/21 00:30 Alkaline Phosphata se 76 IU/L (35-105) 10/02/21 00:30 Total Protein 7.5 g/dL (6.6-8.7 ) 10/02/21 00:30 Albumin 4.7 g/dL (3.5-5.2 ) 10/02/21 00:30 Globulin 2.8 g/dL (1.3-4.6 ) 10/02/21 00:30 HCG, Qual Negative (Negati ve) 10/02/21 00:32 Salicylates 1.4 mg/dL (3-10) L 10/02/21 00:30 Urine Opiates Scre en Negative ng/mL (N egative) 10/02/21 00:32 Acetaminophen < 5.0 ug/mL (10-3 0) L 10/02/21 00:30 Ur Barbiturates Sc reen Negative ng/mL (N egative) 10/02/21 00:32 Ur Phencyclidine S crn Negative ng/mL (N egative) 10/02/21 00:32 Ur Amphetamines Sc reen Positive ng/mL (N egative) H 10/02/21 00:32 U Benzodiazepines Scrn Negative ng/mL (N egative) 10/02/21 00:32 Urine Cocaine Scre en Negative ng/mL (N egative) 10/02/21 00:32 U Marijuana (THC) Screen Negative ng/mL (N egative) 10/02/21 00:32 Ethyl Alcohol 282 mg/dL (0-10) H 10/02/21 00:30 Vitals: Last Vital Signs Temp 97.9 F 10/05/21 14:00 Pulse 102 H 10/05/21 14:00 Resp 18 10/05/21 14:00 BP 95/58 10/05/21 05:57 Pulse Ox 98 10/05/21 14:00 Discharge Plan Discharge Patient Disposition: Home Condition: Stable Prescriptions: New fluoxetine 20 mg Capsule 20 mg PO DAILY 30 Days Qty: 30 1RF Vitamin B-1 (mononitrate) 100 mg Tablet 100 mg PO DAILY 30 Days Qty: 30 1RF Continued naltrexone 50 mg Tablet 50 mg PO DAILY 30 Days Qty: 30 1RF Discontinued citalopram 10 mg tablet 10 mg PO DAILY 0RF Label Comments: Pt states she has never taken this but it was prescribed citalopram 20 mg Tablet 10 mg PO DAILY Qty: 30 0RF Discharge Orders: Discharge Order (Routine); Ordered 10/05/21 Ordered By: Mikey Green Referrals: [facility] [Outside] - 10/14/21 11:30 am (INITIAL INTAKE ASSESSMENT) Amanda Weiner FNP [Primary Care Provider] - Discharge Diet: Regular Discharge Activity: Resume usual activity Patient Instructions: Methamphetamine Abuse, Depression (ED), Anxiety (ED), Opioid Safety Discharge Attestations NPU Time Spent in Discharge Care*: less than 30 min Specific Discharge Activities: Specific discharge activities: educating patient, discussing with case briefer/social workers/dc planners, documenting/other paperwork and evaluating patient/reviewing data Status at Discharge: Cognitive status at discharge: cognitively intact , Behavioral status at discharge: cooperative , Coding Level of Care Code Acute [facility] DC note Diagnoses Anxiety disorder F41.9 Suicidal ideation R45.851 Methamphetamine use disorder, moderate F15.20 Alcohol use disorder MDD (major depressive disorder) F33.1 Active/Remission status: currently active Major depression episode severity: moderate Major depression recurrence: recurrent
[2021-10-05 15:51] VITALS: PULSE 102; RESP 18; TEMP 36.6; O2SAT 98
== END 2021-10-05 16:04 | disposition home or self-care (01) | DRG 885 ==
LOC: ER 01:49 → NP 01:59
PROVIDERS: Admitting Provider Psychiatry & Neurology Psychiatry; Emergency Provider Emergency Medicine; PCP Nurse Practitioner; Visit Provider Psychiatry & Neurology Psychiatry
DX: F33.1 Major depressive disorder, recurrent, moderate (principal); R45.851 Suicidal ideations; F15.20 Other stimulant dependence, uncomplicated; F41.9 Anxiety disorder, unspecified; F10.129 Alcohol abuse with intoxication, unspecified; Y90.8 Blood alcohol level of 240 mg/100 ml or more
CPT/HCPCS: 80053; 80306; 80307; 81025; 85025; 96372; 97150; 97165; 99285; J1630; J2060; J3411

== ENCOUNTER 2022-08-01 14:48 | Emergency (ER) | payer MEDICAID, SELFPAY ==
[2022-08-01 14:52] VITALS: BP 116/81; PULSE 89; RESP 18; TEMP 36.6; O2SAT 98
--- NOTE | 2022-08-01 15:30 | ED_ITS ---
Documented by User: CHARITY Alicea 08/01/22 15:43 HPI - Dental/Oral General: Chief complaint: Dental/Oral Stated complaint: tooth pain Time Seen by Provider: 08/01/22 14:55 History of Present Illness: Patient is a 22-year-old female that presents to the emergency department with complaints of dental pain. Reports symptoms began approximately 2 weeks ago but have suddenly increased in the last 24 hours. Patient routinely see a dentist. Associated symptoms: Denies ear or mastoid pain, fever(s) or odynophagia Review of Systems General: Reports: 10 or more systems reviewed and unremarkable except in HPI and below Const: Denies: fever(s), chills, change in appetite, change in weight, fatigue or malaise Eyes: Denies: change in vision, eye discomfort, eye discharge or eye redness ENMT: Denies: throat pain, enlarged tonsils, odynophagia, hoarseness, ear or mastoid pain, ear discharge, change in hearing, tinnitus, nasal discharge, nasal congestion, post nasal drip or sinus pain Card: Denies: chest pain, palpitations, irregular heart rhythm, edema, dyspnea on exertion, orthopnea or leg pain with exertion Resp: Denies: dyspnea, productive cough, non-productive cough, wheezing, stridor or chest congestion GI: Denies: abdominal pain, nausea, vomiting, dysphagia, diarrhea, constipation, bloating, GI cramping or hematochezia : Denies: flank pain, difficulty voiding, dysuria, urinary frequency, urinary urgency, urinary hesitancy, oliguria or hematuria Musc: Denies: neck pain, back pain, extremity pain, joint pain, joint swelling, joint redness, joint warmth or muscle weakness Skin/Breast: Denies: rash, pruritus, erythema, photosensitivity or new lesions Neuro: Denies: headache(s), numbness in extremities, weakness in extremities, sensory changes, lack of coordination, difficulty walking, frequent falls, dizziness, confusion, Slurred speech present, difficulty communicating thoughts, seizure-like activity or involuntary movements Endo: Denies: polyuria, polydipsia or tired all the time Alphonse/Lymph: Denies: easy bruising or easy bleeding PFS ED PFSH: Medical History Alcohol use disorder Encounter for observation for other suspected diseases and conditions ruled out MDD (major depressive disorder) Methamphetamine use disorder, moderate Social History Current gender identity: Female Physical Exam Const: COMMON NORMALS: no acute distress, patient oriented x3 and alert GENERAL APPEARANCE: cooperative ORIENTATION/CONSCIOUSNESS: Yes awake, Yes oriented to person, Yes oriented to place and Yes oriented to time HENMT: COMMON NORMALS: normocephalic and atraumatic HEAD & SCALP: normocephalic and atraumatic FACE & SINUS: normal facial exam MOUTH: Normal oral and palatal mucosa present (They have the abscess in the right lower jaw. Has impacted wisdom teeth) THROAT: posterior oropharynx normal Eye: COMMON NORMALS: Equal, round and reactive pupils present, EOMs intact bilaterally, conjunctivae normal and no scleral icterus GENERAL EYE: appearance normal, both eyes and all related structures ALIGNMENT: Yes alignment normal PERIORBITAL: periorbital findings normal CONJUNCTIVA: Yes conjunctivae normal PUPIL: Yes Equal, round and reactive pupils present Neck/C-Spine: COMMON NORMALS: full ROM GENERAL: Yes normal visual inspection Lymph: LYMPHATIC: no lymphadenopathy noted Chest: COMMONS NORMALS: normal inspection of the chest Breast/axilla ins pection: Yes no chest deformity, asymmetry, normal contours, no nodules, masses, tenderness Resp: COMMON NORMALS: normal respiratory effort, No retractions, No use of accessory muscles and clear to auscultation bilaterally EFFORT & INSPECTION: Yes able to speak in complete sentences and Yes symmetric chest movement AUSCULTATION: clear to auscultation bilaterally Cardio: COMMON NORMALS: regular rate, regular rhythm and Peripheral pulses 2+ throughout RATE: regular rate RHYTHM: regular rhythm PERIPHERAL PULSES: Peripheral pulses 2+ throughout GI: COMMON NORMALS: Normal to inspection, nondistended, normoactive bowel sounds present, Soft to palpation, non-tender and No hepatosplenomegaly present INSPECTION: Yes normal to inspection AUSCULTATION: Yes normoactive bowel sounds PALPATION: Yes Soft to palpation and Yes No hepatosplenomegaly present RECTAL EXAM: deferred Extremity: COMMON NORMALS: normal to inspection GENERAL: Yes normal exam except as noted Neuro: COMMON NORMALS: patient oriented x3 SENSORIUM/ORIENTATION: Yes alert, Yes oriented to person, Yes oriented to place and Yes oriented to time CRANIAL NERVES: Yes CN normal except as noted Psych: COMMON NORMALS: mental status grossly normal, Normal thought process present, cooperative, activity/motor behavior normal, denies homicidal ideation and denies suicidal ideation THOUGHT PROCESS: Normal thought process present Skin: COMMON NORMALS: no rashes or lesions noted, no wounds and turgor normal GENERAL SKIN EXAM: no rashes or lesions noted and turgor normal Course Vital Signs: Vital signs: Vital Signs Temperature 97.9 F 08/01/22 15:48 Pulse Rate 89 08/01/22 15:48 Respiratory Rate 18 08/01/22 15:48 Blood Pressure 116/81 08/01/22 15:48 Pulse Oximetry 98 08/01/22 15:48 Oxygen Delivery Me thod 08/01/22 14:52 [facility] - Dental/Oral Medical Decision Making Patient is a 22-year-old with a history of depression, methamphetamine use, anxiety. She presents with complaints of dental abscess or dental infection. Patient has evidence of a dental abscess that is not drainable in the lower posterior right jaw. She is going to be treated with Augmentin, IM Toradol, and some viscous lidocaine while here in the ER. I am going to discharge her home on Augmentin and Toradol. Patient is to establish primary care and dental care. Patient is to return as needed for new, concerning, worsening symptoms. Questions sought and answered Discharge Plan Discharge Patient Disposition: Home Clinical Impression: Dental abscess Condition: Stable Prescriptions: New Peridex 0.12 % mouthwash 15 ml buccal BID Qty: 118 0RF amoxicillin-pot clavulanate 875-125 mg tablet 1 tab PO BID 7 Days Qty: 14 0RF ketorolac 10 mg tablet 10 mg PO TID 5 Days Qty: 15 0RF No Action mupirocin 2 % ointment 1 applic topical TID Qty: 15 0RF sulfamethoxazole-trimethoprim [Bactrim DS] 800-160 mg tablet 1 tab PO BID 10 Days Qty: 20 0RF Discharge Orders: Discharge ED (Routine); Ordered 08/01/22 Ordered By: El Wilson Discharge Diet: Advance as tolerated Discharge Activity: Resume usual activity Patient Instructions: Dental Abscess (ED), Opioid Safety, Pain Management Activity Restrictions/Additional Instructions: Please take medications as prescribed Augmentin is your antibiotic you are going to take this twice a day for 7 days. Toradol is an anti-inflammatory. This medication is a lot like ibuprofen and naproxen. Please do not take Aleve, ibuprofen, Motrin or any other nonsteroidal anti-inflammatory drugs while taking this prescription You are going to wash your mouth out with Peridex?mouthwash. It tastes like soap because it is actually soap. This is very good at decreasing the bacteria count in your mouth to help you heal faster. Do not swallow just swish around and spit out Please establish dental services as well as primary care services Please return to the emergency department for new concerning or worsening symptoms. Coding Level of Care Code ED Back Office Medical Assistant for Chg Fwd Documented by User: Arron Yao DO 08/03/22 06:10 HPI - Dental/Oral General: Chief complaint: Dental/Oral Stated complaint: tooth pain Time Seen by Provider: 08/01/22 14:55 [facility] ED PFSH: Medical History Alcohol use disorder Encounter for observation for other suspected diseases and conditions ruled out MDD (major depressive disorder) Methamphetamine use disorder, moderate Social History Current gender identity: Female Course Vital Signs: Vital signs: Vital Signs Temperature 97.9 F 08/01/22 15:48 Pulse Rate 89 08/01/22 15:48 Respiratory Rate 18 08/01/22 15:48 Blood Pressure 116/81 08/01/22 15:48 Pulse Oximetry 98 08/01/22 15:48 Oxygen Delivery Me thod 08/01/22 14:52 [facility] - Dental/Oral Medical Decision Making Patient is a 22-year-old with a history of depression, methamphetamine use, anxiety. She presents with complaints of dental abscess or dental infection. Patient has evidence of a dental abscess that is not drainable in the lower posterior right jaw. She is going to be treated with Augmentin, IM Toradol, and some viscous lidocaine while here in the ER. I am going to discharge her home on Augmentin and Toradol. Patient is to establish primary care and dental care. Patient is to return as needed for new, concerning, worsening symptoms. Questions sought and answered Chart reviewed and patient discussed with midlevel. Agree with assessment and plan. Discharge Plan Discharge Patient Disposition: Home Clinical Impression: Dental abscess Condition: Stable Prescriptions: New Peridex 0.12 % mouthwash 15 ml buccal BID Qty: 118 0RF amoxicillin-pot clavulanate 875-125 mg tablet 1 tab PO BID 7 Days Qty: 14 0RF ketorolac 10 mg tablet 10 mg PO TID 5 Days Qty: 15 0RF No Action mupirocin 2 % ointment 1 applic topical TID Qty: 15 0RF sulfamethoxazole-trimethoprim [Bactrim DS] 800-160 mg tablet 1 tab PO BID 10 Days Qty: 20 0RF Discharge Orders: Discharge ED (Routine); Ordered 08/01/22 Ordered By: El Wilson Discharge Diet: Advance as tolerated Discharge Activity: Resume usual activity Patient Instructions: Dental Abscess (ED), Opioid Safety, Pain Management Activity Restrictions/Additional Instructions: Please take medications as prescribed Augmentin is your antibiotic you are going to take this twice a day for 7 days. Toradol is an anti-inflammatory. This medication is a lot like ibuprofen and naproxen. Please do not take Aleve, ibuprofen, Motrin or any other nonsteroidal anti-inflammatory drugs while taking this prescription You are going to wash your mouth out with Peridex?mouthwash. It tastes like soap because it is actually soap. This is very good at decreasing the bacteria count in your mouth to help you heal faster. Do not swallow just swish around and spit out Please establish dental services as well as primary care services Please return to the emergency department for new concerning or worsening symptoms. Coding Level of Care Code ED Back Office Medical Assistant for Brady Mendoza
[2022-08-01] MEDS: lidocaine 2% viscous 15 mL UDC TOPICAL (15:36)
[2022-08-01] MEDS: ketorolac 60 mg/2 mL INJ IM (15:37)
[2022-08-01] MEDS: amoxicillin-clav 875-125 mg Tablet 1 TAB PO (15:47)
[2022-08-01 15:48] VITALS: BP 116/81; PULSE 89; RESP 18; TEMP 36.6; O2SAT 98
== END 2022-08-01 15:50 | disposition home or self-care (01) ==
PROVIDERS: Emergency Provider Nurse Practitioner
DX: K04.7 Periapical abscess without sinus (principal)
CPT/HCPCS: 96372; 99283; J1885

== ENCOUNTER 2022-10-12 18:01 | Emergency (ER) | payer MEDICAID, SELFPAY ==
--- NOTE | 2022-10-12 18:07 | ECG_ITS ---
[facility] Test Date: 2022-10-12 Pat Name: Malcolm Reeves Department: Room: Gender: Female Mcat Tutor: : 2000 Requested By: Adria Tipton Order Number: [id number] Soy MD: Carter Allison M.D. Measurements Intervals [place] Rate: 72 P: 29 MO: 127 QRS: 57 QRSD: 82 T: 57 QT: 383 QTc: 421 Interpretive Statements SINUS RHYTHM POSSIBLE RIGHT VENTRICULAR CONDUCTION DELAY [RSR (QR) IN V1/V2] No previous ECG available for comparison Electronically Signed On 10-13-2022 7:04:47 CDT by Carter Allison M.D. [id number]
[2022-10-12 18:18] VITALS: BP 111/71; PULSE 102; RESP 18; TEMP 37; O2SAT 98; BMI 37.6
--- NOTE | 2022-10-12 18:26 | XRR_ITS ---
PROCEDURE INFORMATION: Exam: XR Chest Exam date and time: 10/12/2022 6:43 PM Age: 22 years old Clinical indication: Pain; Chest pressure; Additional info: Cp TECHNIQUE: Imaging protocol: Radiologic exam of the chest. Views: 1 view. COMPARISON: No relevant prior studies available. FINDINGS: Lungs: Hypoinflation of the lungs with mild bibasilar atelectasis or infiltrates. Pleural spaces: Unremarkable. No pleural effusion. No pneumothorax. Heart/Mediastinum: Unremarkable. No cardiomegaly. Bones/joints: Unremarkable. XR/XR chest 1V portable [id number] IMPRESSION: Hypoinflation of the lungs with mild bibasilar atelectasis or infiltrates. Correlate for infection clinically.
--- NOTE | 2022-10-12 18:26 | CTR_ITS ---
PROCEDURE INFORMATION: Exam: CT Abdomen And Pelvis With Contrast Exam date and time: 10/12/2022 7:15 PM Age: 22 years old Clinical indication: Abdominal pain; Generalized; Additional info: Abd pain TECHNIQUE: Imaging protocol: Computed tomography of the abdomen and pelvis with contrast. Radiation optimization: All CT scans at this facility use at least one of these dose optimization techniques: automated exposure control; mA and/or kV adjustment per patient size (includes targeted exams where dose is matched to clinical indication); or iterative reconstruction. Contrast material: OMNI 350; Contrast volume: 100 ml; Contrast route: INTRAVENOUS (IV); REPORTING DATA: Count of CT and Cardiac NM exams in prior 12 months: This patient has received 0 known CTs and 0 known cardiac nuclear medicine studies in the 12 months prior to the current study. COMPARISON: OB limited [id number] 07/07/2017 9:41 AM RADIATION DOSE METRICS: Total DLP (mGy-cm): 904.23 FINDINGS: Liver: Normal. No mass. Gallbladder and bile ducts: Normal. No calcified stones. No ductal dilation. Pancreas: Normal. No ductal dilation. Spleen: Normal. No splenomegaly. Adrenal glands: Normal. No mass. Kidneys and ureters: Normal. No hydronephrosis. Stomach and bowel: The colon has diffuse wall thickening. There is mild scattered fluid distention of the small bowel with scattered regions of wall thickening also present. No bowel obstruction. Appendix: No evidence of appendicitis. Intraperitoneal space: Unremarkable. No free air. No significant fluid collection. Vasculature: Unremarkable. No abdominal aortic aneurysm. Lymph nodes: Unremarkable. No enlarged lymph nodes. Urinary bladder: Unremarkable as visualized. Reproductive: Right adnexal cyst measuring 2.5 cm is most likely physiologic. Bones/joints: Unremarkable. No acute fracture. Soft tissues: Unremarkable. CT/CT abdomen pelvis w con* [id number] IMPRESSION: Diffuse colonic wall thickening with scattered small bowel thickening also present suggesting enterocolitis. This is most likely infectious/inflammatory. No evidence of bowel obstruction.
--- NOTE | 2022-10-12 18:27 | ED_ITS ---
HPI - Abdominal Pain General: Chief Complaint: Abdominal Pain Stated Complaint: abdomen pain, chest heaviness Time Seen by Provider: 10/12/22 18:06 Source: patient Mode of arrival: ambulatory Limitations: no limitations History of Present Illness: 22-year-old female states been having lower abdominal pain over the last 4 days. States that suprapubic in her right lower quadrant states she had some ra diation into her chest. States pain is sharp in nature rates an 8 out of 10 denies any worsening improving factors she had no vomiting no diarrhea she denies any dysuria or vaginal bleeding. Associated Symptoms: Reports nausea; Denies chills, dysuria and fever(s) Review of Systems Const: Denies: fever(s), chills, body aches or change in appetite Eyes: Denies: eye discomfort ENMT: Denies: throat pain or dental pain Card: Reports: chest pain Resp: Denies: dyspnea GI: Reports: abdominal pain and nausea : Denies: dysuria Musc: Denies: neck pain or back pain Skin/Breast: Denies: rash Neuro: Denies: headache(s) PFSH ED PFSH: Medical History Alcohol use disorder Depressive disorder Encounter for observation for other suspected diseases and conditions ruled out MDD (major depressive disorder) Methamphetamine use disorder, moderate Social History Current gender identity: Female Physical Exam Const: COMMON NORMALS: no acute distress, patient oriented x3 and healthy appearing HENMT: COMMON NORMALS: normocephalic and atraumatic HEAD & SCALP: normocep halic and atraumatic Eye: COMMON NORMALS: conjunctivae normal CONJUNCTIVA: Yes conjunctivae normal Neck/C-Spine: COMMON NORMALS: full ROM and supple Chest: COMMONS NORMALS: normal inspection of the chest and normal palpation of entire chest wall Resp: COMMON NORMALS: normal respiratory effort, No retractions, No use of accessory muscles and clear to auscultation bilaterally AUSCULTATION: clear to auscultation bilaterally Cardio: COMMON NORMALS: regular rate, regular rhythm and No murmurs present (Cardio) RATE: regular rate RHYTHM: regular rhythm GI: COMMON NORMALS: Normal to inspection, nondistended, normoactive bowel sounds present, Soft to palpation and no masses PALPATION: Yes Soft to palpation and Yes Tenderness to palpation present (GI) Details: RLQ Extremity: COMMON NORMALS: normal to inspection and full ROM Neuro: COMMON NORMALS: patient oriented x3, moves all extremities and no focal motor deficits Psych: COMMON NORMALS: mental status grossly normal, Normal thought process present and cooperative THOUGHT PROCESS: Normal thought process present Skin: COMMON NORMALS: no rashes or lesions noted and no wounds GENERAL SKIN EXAM: no rashes or lesions noted Course Vital Signs: Vital signs: Vital Signs Temperature 98.6 F 10/12/22 18:18 Pulse Rate 101 H 10/12/22 19:43 Respiratory Rate 18 10/12/22 19:43 Blood Pressure 115/76 10/12/22 19:43 Pulse Oximetry 100 10/12/22 19:43 Oxygen Delivery Me thod Room Air 10/12/22 19:43 MDM - Abdominal Pain Medical Decision Making Patient presents here with abdominal pain her CT did show colitis she feels improved here exam is benign we will start her on Cipro Flagyl along with pain meds and nausea medicine we will get her follow-up with surgery she is return if worsening she understands agrees to plan. Lab Data 10/12/22 18:32 10/12/22 18:32 Labs/Radiology: Radiology Impressions Abdomen/Pelvis CT 10/12/22 18:26 IMPRESSION: Diffuse colonic wall thickening with scattered small bowel thickening also present suggesting enterocolitis. This is most likely infectious/inflammatory. No evidence of bowel obstruction. Chest X-Ray 10/12/22 18:26 IMPRESSION: Hypoinflation of the lungs with mild bibasilar atelectasis or infiltrates. Correlate for infection clinically. Laboratory Results WBC 14.8 10^3/uL (4.0-10.0) H 10/12/22 18:32 RBC 4.29 10^6/uL (4.1-5.3) 10/12/22 18:32 Hgb 13.5 g/dL (11.5-15.3) 10/12/22 18:32 Hct 41.1 % (37.0-47.0) 10/12/22 18:32 MCV 95.8 fl (81-99) 10/12/22 18:32 MCH 31.5 pg (28.0-34.0) 10/12/22 18:32 MCHC 32.8 g/dL (30.0-36.0) 10/12/22 18: RDW 13.6 % (12.1-15.1) 10/12/22 18: Plt Count 333 10^3/cmm (130-400) 10/12/22 18:32 MPV 10.0 fL (7.4-10.4) 10/12/22 18: Neut % (Auto) 86.2 % 10/12/22 18: Lymph % (Auto) 7.6 % 10/12/22 18: [place] % (Auto) 4.3 % 10/12/22 18: Eos % (Auto) 1.2 % 10/12/22 18: Baso % (Auto) 0.3 % 10/12/22 18: Neut # (Auto) 12.72 10^3/uL (1.8-7.7) H 10/12/22 18:32 Lymph # (Auto) 1.1 10^3/uL (0.8-4.8) 10/12/22 18:32 [place] # (Auto) 0.6 10^3/uL (0.2-0.9) 10/12/22 18: Eos # (Auto) 0.2 10^3/uL (0.0-0.8) 10/12/22 18: Baso # (Auto) 0.1 10^3/uL (0.0-0.1) 10/12/22 18: Nucleated RBC % (auto) 0 % 10/12/22 18: Nucleated RBCs # 0.0 /100WBC 10/12/22 18:32 Sodium 138 mmol/L (136-145) 10/12/22 18: Potassium 3.7 mmol/L (3.5-5.1) 10/12/22 18: Chloride 102 mmol/L (98-107) 10/12/22 18: Carbon Dioxide 26 mmol/L (22-29) 10/12/22 18:32 Anion Gap 13.7 (5-19) 10/12/22 18:32 BUN 8 mg/dL (6-20) 10/12/22 18: Creatinine 0.5 mg/dL (0.5-0.9) 10/12/22 18:32 GFR Calculation 154.3 mL/min (90-130) H 10/12/22 18:32 Glucose 89 mg/dL (65-115) 10/12/22 18:32 Calculated Osmolality 284 mOsm/kg (285-295) L 10/12/22 18:32 Calcium 9.7 mg/dL (8.5-10.5) 10/12/22 18:32 Total Bilirubin 0.2 mg/dL (0.15-1.2) 10/12/22 18:32 AST 13 U/L (0-32) 10/12/22 18:32 ALT 22 U/L (0-33) 10/12/22 18:32 Alkaline Phosphatase 70 U/L (35-105) 10/12/22 18:32 Total Protein 7.7 g/dL (6.6-8.7) 10/12/22 18:32 Albumin 4.0 g/dL (3.5-5.2) 10/12/22 18:32 Globulin 3.7 g/dL (1.3-4.6) 10/12/22 18:32 Lipase 34 U/L (13-60) 10/12/22 18:32 HCG, Qual Negative (Negative) 10/12/22 18:32 EKG Data EKG 1: I personally reviewed and interpreted this EKG as follows: EKG interpretation date: 10/12/22 EKG interpretation time: 18:51 Interpretation: nsr hr [address] or t wave abnormalities qrs 82 qtc 408 Discharge Plan Discharge Patient Disposition: Home Clinical Impression: Abdominal pain, Colitis Condition: Stable Prescriptions: New hydrocodone-acetaminophen 5-325 mg tablet 1 tab PO Q6H PRN (Reason: pain) Qty: 14 0RF metronidazole 500 mg tablet 500 mg PO Q8H 7 Days Qty: 21 0RF Cipro 500 mg tablet 500 mg PO BID Qty: 14 0RF ondansetron 4 mg tablet,disintegrating 4 mg PO Q6H PRN (Reason: nausea and vomiting) Qty: 14 0RF No Action mupirocin 2 % ointment 1 applic topical TID Qty: 15 0RF sulfamethoxazole-trimethoprim [Bactrim DS] 800-160 mg tablet 1 tab PO BID 10 Days Qty: 20 0RF Peridex 0.12 % mouthwash 15 ml buccal BID Qty: 118 0RF Discharge Orders: Discharge ED (Routine); Ordered 10/12/22 Ordered By: Adria Tipton Referrals: Benedicto Diaz DO [Physician] - 1-3 days Discharge Diet: Advance as tolerated Discharge Activity: Resume usual activity Patient Instructions: Abdominal Pain (ED), Colitis (ED) Coding Level of Care Code ED Tool Maker Apprentice for Brady Mendoza
[2022-10-12 18:43] LABS: Basophils # 0.1 10^3/uL (0.0-0.1); Basophils % 0.3 %; Eosinophils # 0.2 10^3/uL (0.0-0.8); Eosinophils % 1.2 %; Hematocrit 41.1 % (37.0-47.0); Hemoglobin 13.5 g/dL (11.5-15.3); Lymphocytes # 1.1 10^3/uL (0.8-4.8); Lymphocytes % 7.6 %; Mean Corpuscular HGB Conc 32.8 g/dL (30.0-36.0); Mean Corpuscular Hemoglobin 31.5 pg (28.0-34.0); Mean Corpuscular Volume 95.8 fl (81-99); Monocytes # 0.6 10^3/uL (0.2-0.9); Monocytes % 4.3 %; Neutrophils # 12.72 10^3/uL (1.8-7.7); Neutrophils % 86.2 %; Nucleated Red Blood Cells % 0 %; Platelet Count 333 10^3/cmm (130-400); Red Blood Count 4.29 10^6/uL (4.1-5.3); Red Cell Distribution Width 13.6 % (12.1-15.1); White Blood Count 14.8 10^3/uL (4.0-10.0)
[2022-10-12 18:54] LABS: HCG, Serum Qual Negative (Negative)
[2022-10-12 18:58] VITALS: RESP 16
[2022-10-12] MEDS: ondansetron 2 mg/ML SDV 2 mL 4 MG IVP (18:58)
[2022-10-12] MEDS: morphine 4 mg/mL SDV 1 mL IM (18:58)
[2022-10-12 19:00] LABS: Alanine Aminotransferase 22 U/L (0-33); Alkaline Phosphatase 70 U/L (35-105); Anion Gap 13.7 (5-19); Aspartate Amino Transferase 13 U/L (0-32); Blood Urea Nitrogen 8 mg/dL (6-20); Calcium 9.7 mg/dL (8.5-10.5); Carbon Dioxide 26 mmol/L (22-29); Chloride 102 mmol/L (98-107); Globulin 3.7 g/dL (1.3-4.6); Glomerular Filtration Rate 154.3 mL/min (90-130); Glucose 89 mg/dL (65-115); Lipase 34 U/L (13-60); Osmolality Calculated 284 mOsm/kg (285-295); Potassium 3.7 mmol/L (3.5-5.1); Sodium 138 mmol/L (136-145); Total Bilirubin 0.2 mg/dL (0.15-1.2); Total Protein 7.7 g/dL (6.6-8.7)
[2022-10-12] MEDS: iohexol 350 mg/mL 500 mL Btl (per mL) IV (19:35)
[2022-10-12] MEDS: sodium chloride 0.9% 1,000 ML 999 ML IV (19:41)
[2022-10-12 19:43] VITALS: BP 115/76; PULSE 101; RESP 18; O2SAT 100
[2022-10-12 20:17] LABS: Urine Appearance Hazy (CLEAR); Urine Color Yellow (Yellow)
[2022-10-12 20:19] LABS: Bilirubin Urine Neg (Negative); Blood Urine 3+ (Negative); Glucose Urine UA Norm (Normal); Ketones Urine Negative (Negative); Leukocyte Esterase Urine 1+ (Negative); Nitrate Urine Negative (Negative); Protein Urine 1+ (Negative); Specific Gravity, Urine 1.015 (1.005-1.030); Sulfosalicylic Acid Urine Positive (Negative); Urobilinogen Urine Norm (Negative); pH Urine 8 (5-7)
[2022-10-12 20:23] LABS: Add Urine Microscopic? YES
[2022-10-12 20:24] LABS: Add Urine Culture? Yes; Bacteria Urine TRACE /hpf; Mucus Urine 1+ /hpf; WBC Urine 25-40 /hpf (0-5)
[2022-10-12 20:33] VITALS: BP 123/79; RESP 18; O2SAT 99
[2022-10-12 20:34] VITALS: BP 123/79; RESP 18; O2SAT 99
--- NOTE | 2022-10-13 09:40 | DCPLANNER ---
Addendum entered by Vandana Silva 10/16/22 11:17: country sales manager called [facility] to confirm that facility had received patients information. country sales manager was told that patients information had been received, it will be reviewed and clinic will call patient with appointment information. Addendum entered by Vandana Silva 10/15/22 11:14: country sales manager was able to speak with patients life partner, was told to send referral to [facility]. country sales manager faxed patients information to [facility], it will be reviewed and clinic will call patient with appointment information. Addendum entered by Vandana Silva 10/14/22 10:50: country sales manager received the following message from general surgery clinic regarding follow up appointment: Patient has [facility], please refer elsewhere bilingual case manager called patient at phone number [phone] to inform patient that she would need to be seen somewhere else. country sales manager was to confirm if patient wanted to be referred to [facility] or [facility] in [place]. country sales manager called phone number [phone], bilingual case manager was unable to speak with patient or leave a voicemail for patient. A recording stated that the phone number not accepting calls at this time, to try your call later. Original Note: country sales manager had message to schedule a follow up appointment for patient with general surgery. country sales manager sent patients information to the front office staff at general surgery. Patients information will be printed and reviewed. Clinic will call patient with appointment information.
--- NOTE | 2022-10-15 11:15 | DCPLANNER ---
Addendum entered by Vandana Silva 10/29/22 09:55: Patient had a follow up appointment scheduled with [facility] - patient did not attend appointment. Addendum entered by Vandana Silva 10/20/22 14:16: Patient called case worker wanting case worker to get her established with a primary care physician. building rental manager called [facility], spoke with Jillian, gave clinic patients information. A follow up appointment was scheduled for Friday, October 28, 2022 at 1:[address] Vance. Patient is aware of appointment. Original Note: building rental manager called patient due to no primary care physician - case worker unable to speak with patient at this time, a message was left that if patient would like help in getting established with a provider, that patient can call case worker.
== END 2022-10-12 20:36 | disposition home or self-care (01) ==
PROVIDERS: Emergency Provider Emergency Medicine
DX: K52.9 Noninfective gastroenteritis and colitis, unspecified (principal)
CPT/HCPCS: 36415; 71045; 74177; 80053; 81001; 83690; 84703; 85025; 87086; 93005; 96372; 96374; 99285; J2270; J2405; J7030; Q9967

== ENCOUNTER 2024-06-24 12:05 | Emergency (ER) | payer MEDICAID, SELFPAY ==
[2024-06-24 12:17] VITALS: BP 152/89; PULSE 118; RESP 16; TEMP 36.8; O2SAT 99; BMI 36.6
--- NOTE | 2024-06-24 12:24 | XRR_ITS ---
PROCEDURE INFORMATION: Exam: XR Right Hand Exam date and time: 06/24/2024 12:47 PM Age: 24 years old Clinical indication: Right; Patient HX: RT hand pain post dog attack; Additional info: Injury TECHNIQUE: Imaging protocol: Radiologic exam of the right hand. Views: 3 or more views. COMPARISON: No relevant prior studies available. FINDINGS: Bones/joints: No fracture or other acute abnormality. Small benign sclerotic focus at the base of the proximal phalanx of the ring finger probably represents a bone island. Joint spaces are normal. Soft tissues: Normal. XR/XR hand RT min 3V* [id number] IMPRESSION: No acute findings.
[2024-06-24] MEDS: tetanus-dipt-pertussis 0.5 mL SDV IM (12:52)
--- NOTE | 2024-06-24 13:23 | PC.NURSE ---
Pt irrigated and cleansed wound
[2024-06-24] MEDS: amoxicillin-clav 875-125 mg Tablet 1 TAB PO (13:54)
[2024-06-24] MEDS: ketorolac 10 mg Tablet PO (13:54)
--- NOTE | 2024-06-24 14:25 | W.ED.ANIMALB ---
HPI - Animal Bite General: Chief Complaint: Animal Bite Stated Complaint: dog bite Time Seen by Provider: 06/24/24 13:20 History of Present Illness: Patient is a 24-year-old female that is right-hand dominant. Presents to the emergency department with a bite to the right fourth finger. Patient reports that she was trying to break up a dog fight when she got bitten by her animal. Patient states that she is not up-to-date on immunizations including Tdap. Related Data Previous Rx's Medication Instructions Recorded amoxicillin 500 mg tablet 1,000 mg (2 x 500 mg) PO BID 7 07/30/23 days #28 tabs amoxicillin 875 mg-potassium 1 tab PO BID 7 days #14 tabs 06/24/24 clavulanate 125 mg tablet ketorolac 10 mg tablet 10 mg PO Q8H 5 days #15 tabs 06/24/24 Allergies Allergy/AdvReac Type Severity Reaction Status Date / Time No Known Allergies Allergy Verified 07/30/23 18:46 Review of Systems General: Reports: 10 or more systems reviewed and unremarkable except in HPI and below PFSH ED PFSH: Medical History Alcohol use disorder Depressive disorder Encounter for observation for other suspected diseases and conditions ruled out MDD (major depressive disorder) Methamphetamine use disorder, moderate Social History Current gender identity: Female Physical Exam Const: COMMON NORMALS: no acute distress, patient oriented x3 and alert GENERAL APPEARANCE: cooperative ORIENTATION/CONSCIOUSNESS: Yes awake, Yes oriented to person, Yes oriented to place and Yes oriented to time Chest: COMMONS NORMALS: normal inspection of the chest Breast/axilla inspection: Yes no chest deformity, asymmetry, normal contours, no nodules, masses, tenderness Resp: COMMON NORMALS: normal respiratory effort, No retractions and No use of accessory muscles EFFORT & INSPECTION: Yes able to speak in complete sentences and Yes symmetric chest movement Cardio: COMMON NORMALS: regular rate and Peripheral pulses 2+ throughout RATE: regular rate PERIPHERAL PULSES: Peripheral pulses 2+ throughout Extremity: COMMON NORMALS: normal to inspection NARRATIVE EXTREMITY EXAM: Right upper extremity: Skin is clean dry intact to the right upper extremity with the exception of the right fourth finger. There is a bite to the tip of the finger. Sensation intact but altered at this time. No active bleeding No nailbed involvement. The wound does struggle the margin of the nail fold. GENERAL: Yes normal exam except as noted Neuro: COMMON NORMALS: patient oriented x3 SENSORIUM/ORIENTATION: Yes alert, Yes oriented to person, Yes oriented to place and Yes oriented to time CRANIAL NERVES: Yes CN normal except as noted Psych: COMMON NORMALS: mental status grossly normal, Normal thought process present, cooperative, activity/motor behavior normal, denies homicidal ideation and denies suicidal ideation THOUGHT PROCESS: Normal thought process present Skin: COMMON NORMALS: no rashes or lesions noted, no wounds and turgor normal GENERAL SKIN EXAM: no rashes or lesions noted and turgor normal Course Vital Signs: Vital signs: Vital Signs Temperature 98.2 F 06/24/24 12:17 Pulse Rate 87 06/24/24 14:37 Respiratory Rate 14 06/24/24 14:37 Blood Pressure 152/89 06/24/24 12:17 Pulse Oximetry 99 06/24/24 14:37 Oxygen Delivery Me thod Room Air 06/24/24 12:17 MDM - Animal Bite Medical Decision Making Patient underwent XR imaging of the right hand which reveals no fractures or fracture dislocations. No bony abnormality. Her wound was cleansed vigorously and her tetanus was updated. She was started on Augmentin and I gave her ketorolac p.o. for pain at this time going to have her follow-up with her primary care doctor. She needs to monitor her symptoms closely for signs of infection. Lab Data Radiology Impressions Hand X-Ray 06/24/24 12:24 IMPRESSION: No acute findings. All radiology interpretation(s) finalized by discharge Discharge Plan Discharge Patient Disposition: Home Clinical Impression: Dog bite Condition: Stable Prescriptions: New amoxicillin-pot clavulanate 875-125 mg tablet 1 tab PO BID 7 Days Qty: 14 0RF ketorolac 10 mg tablet 10 mg PO Q8H 5 Days Qty: 15 0RF No Action amoxicillin 500 mg tablet 1,000 mg PO BID 7 Days Qty: 28 0RF Discharge Orders: Discharge ED (Routine); Ordered 06/24/24 Ordered By: El Wilson Discharge Diet: Advance as tolerated Discharge Activity: Resume usual activity Patient Instructions: Pain Management, Animal Bites - Adult Activity Restrictions/Additional Instructions: Monitor the wound closely. Watch for signs of infection. Please return to the emergency department for new concerning or worsening symptoms including worsening infection. I provided you with ketorolac or Toradol. This is a drug that belongs in the family nonsteroidal anti-inflammatory drugs, NSAIDs. Do not take additional NSAIDs while taking this. Coding Level of Care Code ED Inspector Repairer for Brady Mendoza
[2024-06-24 14:37] VITALS: PULSE 87; RESP 14; O2SAT 99
== END 2024-06-24 14:50 | disposition home or self-care (01) ==
PROVIDERS: Emergency Provider Nurse Practitioner
DX: S61.254A Open bite of right ring finger without damage to nail, initial encounter (principal); W54.0XXA Bitten by dog, initial encounter
CPT/HCPCS: 73130; 90471; 90715; 99283